=== PATIENT | female | born 1990 | race Caucasian/White ===

== ENCOUNTER 2020-09-01 08:20 | Emergency (ER) | payer BC ==
[~2020-09-01] VITALS: Ht 162.6 cm; Wt 122.5 kg
[2020-09-01 08:25] VITALS: BP 112/75
--- NOTE | 2020-09-01 08:25 | NUR ---
TO [facility]
--- NOTE | 2020-09-01 10:00 | NUR ---
20G IV placed to left wrist with good blood return
--- NOTE | 2020-09-01 10:10 | NUR ---
WAITING FOR MEDICATION TO BE MADE FROM PHARMACY
[2020-09-01] MEDS ORDERED: NACL 0.9% IV SCH (10:30)
[2020-09-01] MEDS ORDERED: BAMLANIVIMAB IV SCH (10:30)
[2020-09-01] MEDS: ED NON STOCK ORDER 1 EA MISC IV ONE (10:50)
--- NOTE | 2020-09-01 11:00 | NUR ---
MEDICATION STARTED WITH FILTER, PT UNDERSTANDS TO USE CALL LIGHT IF SOB STARTS, ON MONITOR VS STABLE
[2020-09-01] MEDS: NACL 0.9% IV SCH (11:02)
[2020-09-01] MEDS: BAMLANIVIMAB IV SCH (11:02)
[2020-09-01 12:40] VITALS: BP 110/73
--- NOTE | 2020-09-01 12:40 | NUR ---
Patient discharged with v/s stable. Written and verbal after care instructions about COVID 19 given and explained. Patient alert, oriented and verbalized understanding of instructions. Ambulatory with steady gait. All questions addressed prior to discharge. ID band removed. Patient advised to follow up with PMD. Rx of guaifenesin and albuterol given. Patient educated on indication of medication including possible reaction and side effects. Opportunity to ask questions provided and answered.
--- NOTE | 2020-09-04 10:24 | NUR ---
LATE ENTRY -- INFUSION COMPLETED AT 1202 09/01
== END 2020-09-01 12:40 | disposition home or self-care (01) ==
LOC: MED 08:20
DX: U07.1 COVID-19 (principal); R06.00 Dyspnea, unspecified
CPT/HCPCS: 71045; 96365; 99284; J7030; M0239

== ENCOUNTER 2023-07-25 16:16 | Emergency (ER) | payer BC ==
[~2023-07-25] VITALS: Ht 157.5 cm; Wt 129.4 kg
[2023-07-25 16:18] VITALS: BP 127/94; PULSE 76; RESP 20; TEMP 99; O2SAT 95
[2023-07-25] MEDS ORDERED: diphenhydrAMINE 50 MG CAP PO ONE (16:30)
[2023-07-25] MEDS ORDERED: EPINEPHrine 1 MG/ML AMP IM ONE (18:10)
[2023-07-25] MEDS ORDERED: FAMOTIDINE 20 MG TAB PO ONE (18:10)
[2023-07-25] MEDS ORDERED: DEXAMETHASONE 10 MG/ML VIAL IM ONE (18:25)
[2023-07-25] MEDS ORDERED: PRED20TA5 PO (18:54)
[2023-07-25] MEDS ORDERED: FAMO-92 PO (18:55)
[2023-07-25] MEDS ORDERED: DIPH25TA53 PO (18:55)
[2023-07-25] MEDS ORDERED: SULF-59 PO (19:06)
[2023-07-25 19:08] VITALS: BP 127/94; PULSE 75; RESP 20; TEMP 99; O2SAT 95
== END 2023-07-25 19:06 | disposition home or self-care (01) ==
LOC: MED 16:16
DX: L50.9 Urticaria, unspecified (principal); T50.995A Adverse effect of other drugs, medicaments and biological substances, initial encounter; Y92.89 Other specified places as the place of occurrence of the external cause
CPT/HCPCS: 96372; 99283; J1100; Q0163; J0171